=== PATIENT | male | born 1980 | race Hispanic/Latino ===

== ENCOUNTER 2021-09-09 12:03 | Observation (INO) | payer SELFPAY ==
[~2021-09-09] VITALS: Ht 160 cm; Wt 70.0 kg
[2021-09-09] VITALS (10 sets, daily range): BP systolic 118–159; BP diastolic 81–103
[~2021-09-09 12:03] MED LIST: KEFLEX500 M1 PO; NO HOME MEDS
--- NOTE | 2021-09-09 13:00 | NUR ---
PT AMBULTAED TO TX ROOM, STABLE
--- NOTE | 2021-09-09 14:00 | NUR ---
Reassessment of patient completed. No distress noted.
[2021-09-09 14:39] LABS: IMMATURE GRANULOCYTES 1.1 % (0.0-5.0); MEAN CELL VOLUME 86.8 fL CALC (80.0-100.0); MEAN CORPUSCULAR HGB 29.7 pG CALC (26.0-32.0); MEAN CORPUSCULAR HGB CONC 34.2 g/dL CAL (32.0-36.0); NEUT# 14.43 thou/uL (1.82-7.42); RED BLOOD COUNT 4.31 mill/uL (4.70-6.10); RED CELL DISTRI WIDTH 12.1 % (11.5-15.5); URINE BILIRUBIN - DIPSTICK NEGATIVE (NEGATIVE); URINE BLOOD DIPSTICK SMALL (NEGATIVE); URINE COLOR YELLOW; URINE GLUCOSE - DIPSTICK >=1000 mg/dL (NEGATIVE); URINE KETONE >=80 mg/dL (NEGATIVE); URINE LEUK ESTERASE NEGATIVE (NEGATIVE); URINE PROTEIN - DIPSTICK NEGATIVE (NEG-TRACE); URINE SPECIFIC GRAVITY <=1.005; URINE UROBILINOGEN - DIPSTICK 0.2 E.U./dL (0.2)
[2021-09-09 14:40] LABS: HEMATOCRIT 37.4 % (39.0-50.0); HEMOGLOBIN 12.8 g/dl (14.0-18.0)
[2021-09-09 14:41] LABS: URINE NITRITE - DIPSTICK NEGATIVE (Negative)
--- NOTE | 2021-09-09 15:00 | NUR ---
Reassessment of patient completed. No distress noted.
[2021-09-09 15:06] LABS: ALBUMIN 3.7 g/dL (3.2-5.0); BILIRUBIN, TOTAL 0.5 mg/dL (0.0-1.4); BUN 16 mg/dL (9-20); BUN/CREATININE RATIO 24 (12-20 (CALC)); CHLORIDE 92 mmol/l (95-108); CREATININE 0.7 mg/dL (0.7-1.3); GFR FOR AFR.AMER. > 60 ML/MIN (>=60 (CALC)); GFR OTHER RACES > 60 ML/MIN (>=60 (CALC)); LIPASE 87 u/l (23-300); SGOT/AST 25 u/l (17-59); TOTAL PROTEIN 7.6 g/dL (6.3-8.2)
[2021-09-09 15:07] LABS: ALKALINE PHOSPHATASE 166 u/l (38-126); ANION GAP 22 (6-22 (CALC)); CARBON DIOXIDE 17 mmol/l (22-30); SODIUM 126 mmol/l (137-146)
--- NOTE | 2021-09-09 16:00 | NUR ---
Reassessment of patient completed. No distress noted.
--- NOTE | 2021-09-09 17:00 | NUR ---
Reassessment of patient completed. No distress noted.
--- NOTE | 2021-09-09 18:42 | NUR ---
Reassessment of patient completed. No distress noted.
--- NOTE | 2021-09-09 20:23 | NUR ---
REPORT TO JOSHUA, RN/PT BEING ADMITTED TO ROOM 279. REPEAT BLOOD SUGAR IS 316.
--- NOTE | 2021-09-09 20:55 | NUR ---
TO FLOOR VIA W/C WITH NURSING TIMBER FRAMER
[2021-09-10 04:20] VITALS: BP 114/75
--- NOTE | 2021-09-10 05:24 | NUR ---
PT IN BED ASLEEP, NO DISTRESS NOTED, BED IN LOW POSITION, CALL LIGHT IN REACH
[2021-09-10 05:46] LABS: HEMATOCRIT 34.9 % (39.0-50.0); HEMOGLOBIN 11.9 g/dl (14.0-18.0); MEAN CELL VOLUME 88.4 fL CALC (80.0-100.0); MEAN CORPUSCULAR HGB 30.1 pG CALC (26.0-32.0); MEAN CORPUSCULAR HGB CONC 34.1 g/dL CAL (32.0-36.0); RED BLOOD COUNT 3.95 mill/uL (4.70-6.10); RED CELL DISTRI WIDTH 12.4 % (11.5-15.5)
--- NOTE | 2021-09-10 05:53 | NUR ---
PT IS REFUSING IV FLUID STATING IT IS HURTING, HIS ARM DIDN'T LOOK RED BUT I TOLD HIM I COULD PUT A NEW IV IN AND HE IS REFUSING ANOTHER IV HE DOEN;T WANT A IV OR THE IV FLUIDS.
[2021-09-10 06:05] LABS: ALKALINE PHOSPHATASE 126 u/l (38-126); BILIRUBIN, TOTAL 0.4 mg/dL (0.0-1.4); BUN 11 mg/dL (9-20); BUN/CREATININE RATIO 16 (12-20 (CALC)); CARBON DIOXIDE 15 mmol/l (22-30); CREATININE 0.7 mg/dL (0.7-1.3); GFR FOR AFR.AMER. > 60 ML/MIN (>=60 (CALC)); GFR OTHER RACES > 60 ML/MIN (>=60 (CALC)); MAGNESIUM 2.1 mg/dL (1.6-2.3); POTASSIUM 4.5 mmol/l (3.5-5.1); SGOT/AST 16 u/l (17-59); TOTAL PROTEIN 6.5 g/dL (6.3-8.2)
[2021-09-10 06:07] LABS: ANION GAP 21 (6-22 (CALC)); CHLORIDE 104 mmol/l (95-108); SODIUM 135 mmol/l (137-146)
[2021-09-10 06:49] VITALS: BP 125/83
[2021-09-10 06:50] VITALS: BP 121/82
--- NOTE | 2021-09-10 07:55 | NUR ---
Patient is screened for intervention and no needs are identified at this time
--- NOTE | 2021-09-10 08:00 | NUR ---
SHIFT CHANGE REPORT, PT AWAKE ALERT AND ORIENTED LYING IN BED, IVF NOT NOT CONNECTED OR INFUSING, [facility] NURSE HAD REPORTED PT REFUSED TO HAVE IV FLUIDS. SENIOR SSIS DEVELOPER WAS CONTACTED AND CARE EXPLAINED TO PT SO HE AGREED TO BE RECONNECTED, HE WAS ALSO EDUCATED ON DIABETES AND INPORTANCE OF COMPLIANCE WITH MEDICATION REGIMEN, HE STATED UNDERSTANDING, WILL CONTINUE TO MONITOR.
[2021-09-10] MEDS ORDERED: METFORMIN500 M2 PO (08:29)
[2021-09-10 15:04] VITALS: BP 120/70
--- NOTE | 2021-09-10 15:49 | NUR ---
Discharge instructions given. Patient verbalizes understanding of same. Discharged in good condition via Ambulatory to Home with *Other. All belongings sent with pt.
--- NOTE | 2021-09-12 10:47 | NUR ---
PRELIMINARY BLOOD CULTURE RESULTS SHOW GRAM NEGATIVE RODS IN 1 VIAL. REPORTED TO ROSA M & DR HOFFMANN. REQUESTED PT BE CONTACTED TO RETURN TO ED. CALLED PT LM @ [phone]. WILL F/U LATER TODAY
--- NOTE | 2021-09-13 14:43 | NUR ---
UNABLE TO REACH PT VIA TELEPHONE. WILL MAIL CERTIFIED LETTER REQUESTING RETURN TO ED FOR EVALUATION/IV ABX.
== END 2021-09-10 16:00 | disposition home or self-care (01) | DRG 638 ==
LOC: ED 12:03 → ED-I 15:27 → ED 18:43 → MS2 18:44
PROVIDERS: Nurse Practitioner; ADMIT Internal Medicine; ATTEND Internal Medicine
DX: E11.65 Type 2 diabetes mellitus with hyperglycemia (principal); E87.1 Hypo-osmolality and hyponatremia; D72.829 Elevated white blood cell count, unspecified; I10 Essential (primary) hypertension; T38.3X6A Underdosing of insulin and oral hypoglycemic [antidiabetic] drugs, initial encounter; Z91.120 Patient's intentional underdosing of medication regimen due to financial hardship; Z79.84 Long term (current) use of oral hypoglycemic drugs; Z20.822 Contact with and (suspected) exposure to COVID-19
CPT/HCPCS: G0378; Q9967; S0164